=== PATIENT | male | born 1950 | race Caucasian/White ===

== ENCOUNTER 2020-04-05 07:40 | Outpatient (CLI) | payer MEDICARE, OTHER ==
[2020-04-06 02:28] LABS: SARS-CoV-2 MS2 Positive; SARS-CoV-2 N Gene Negative; SARS-CoV-2 S Gene Negative; SARS-CoV-2 by NAA Not Detected (NotDetected); SARS-CoV-2 orf1ab Negative
== END 2020-04-05 07:41 | disposition home or self-care (01) ==
LOC: LABBT 07:40
PROVIDERS: ATTEND Neurological Surgery
DX: Z01.812 Encounter for preprocedural laboratory examination (principal); M48.061 Spinal stenosis, lumbar region without neurogenic claudication; Z20.822 Contact with and (suspected) exposure to COVID-19
CPT/HCPCS: 87635; U0003

== ENCOUNTER 2020-04-10 05:38 | Day surgery (SDC) | payer MEDICARE, OTHER ==
--- NOTE | 2020-04-09 17:11 | HP ---
HISTORY OF PRESENT ILLNESS: Mr. Dotson is a 70-year-old man who is referred to us for evaluation by his primary care doctor, for severe lumbar stenosis as well as sciatic pain. He has a distant history of lumbar decompression and fusion performed at L4-5 at an outside facility. He now has developed what appears to be adjacent segment disease a level above at L3-4 where he has severe central canal and lateral recess stenosis as well as foraminal stenosis. He hopes to treat this surgically given how debilitating the pain has been. He has attempted injections with limited benefit. PAST MEDICAL HISTORY: Significant for hyperlipidemia, osteoarthritis, chronic pain syndrome. PAST SURGICAL HISTORY: Lumbar decompression and fusion, [place] prostatectomy, carpal tunnel release on the right. MEDICATIONS: Lipitor. ALLERGIES: NO KNOWN DRUG ALLERGIES. PHYSICAL EXAMINATION: Exam is deferred for telehealth visit. ASSESSMENT: Lumbar spinal stenosis with neurogenic claudication. PLAN: Dr. Espino met with the patient, reviewed imaging, and advocated for L3-L4 decompression. He explained to the patient the risks, benefits, and alternatives to the procedure. The patient expressed understanding and elected to move forward with surgery as discussed. I do believe that the patient is mentally competent and capable of making medical decisions for himself. We will move forward with surgery as planned. Job ID: [id number]
[2020-04-10] MEDS ORDERED: EPINEPHrine 1 MG/ML AMP ONE (06:22)
[2020-04-10] MEDS ORDERED: Thrombin 5000 UNITS/5 ML VIAL ONE (06:22)
[2020-04-10] MEDS ORDERED: Bupivacaine PF 0.5% 30 ML VIAL ONE (06:22)
[2020-04-10] MEDS ORDERED: Fentanyl 100 MCG/2 ML VIAL ONE ×3 (06:58→08:58)
[2020-04-10] MEDS ORDERED: Meperidine HCl/PF 25 MG/ML VIAL SLOW IVP PRN (07:48)
[2020-04-10] MEDS ORDERED: Promethazine HCl 25 MG/ML VIAL IM PRN (07:48)
[2020-04-10] MEDS ORDERED: Promethazine HCl 25 MG/ML VIAL SLOW IVP PRN (07:48)
[2020-04-10] MEDS ORDERED: HYDROmorphone 2 MG/ML VIAL SLOW IVP PRN (07:48)
--- NOTE | 2020-04-10 08:20 | OP ---
DATE OF PROCEDURE: 04/10/2020 MACHINE TANK OPERATOR: Aurelio Pickens PA-C INDICATION: Pain. DIAGNOSIS: Lumbar stenosis. PROCEDURE PERFORMED: Lumbar decompression, L3-L4. ANESTHESIA: General. DESCRIPTION OF PROCEDURE: The patient was brought into the operating room and placed under general anesthesia. He was flipped from the supine to prone position on the operating room table. A linear incision was planned at the L3-L4 segment. After prepping and draping and after an appropriate preoperative pause, the incision was created. The soft tissues were swept away from midline. Self-retaining retractors were placed in the wound for optimal exposure. After confirming the appropriate level with C-arm fluoroscopy, an Adson rongeur was used to remove the spinous process at the L3-L4 segment. High-speed cutting drill bit as well as , 3, and 4 mm Kerrisons were then used to complete the laminectomy. After completing the decompression of the central canal and lateral recesses, the wound was irrigated. Hemostasis was maintained throughout. The wound was then closed in anatomic layers, and a pressure dressing was applied. There were no known procedural complications. Job ID: [id number]
[2020-04-10] MEDS ORDERED: Ketorolac Tromethamine 30 MG/ML VIAL ONE ×2 (08:29→11:54)
[2020-04-10] MEDS ORDERED: Tamsulosin HCl 0.4 MG CAP ONE (08:35)
[2020-04-10] MEDS ORDERED: Rocuronium Bromide 10 MG/ML (10ML VIAL) ONE (11:54)
[2020-04-10] MEDS ORDERED: ePHEDrine 50 MG/ML VIAL ONE (11:54)
[2020-04-10] MEDS ORDERED: Glycopyrrolate 0.2 MG/ML 5 ML SYRINGE ONE (11:54)
[2020-04-10] MEDS ORDERED: PROPOFOL 200 MG/20 ML VIAL ONE (11:54)
[2020-04-10] MEDS ORDERED: Lidocaine 1% PF 5 ML VIAL ONE (11:54)
[2020-04-10] MEDS ORDERED: Ondansetron PF 4 MG/2 ML Vial ONE (11:54)
--- NOTE | 2020-04-21 19:29 | EKG ---
Test Reason : PREOP Blood Pressure : / mmHG Vent. Rate : 058 BPM Atrial Rate : 058 BPM P-R Int : 154 ms QRS Dur : 098 ms QT Int : 404 ms P-R-T Axes : 052 032 051 degrees QTc Int : 396 ms Sinus bradycardia Otherwise normal ECG No previous ECGs available Confirmed by VIVIANA AMIN MD ([id number]) on 04/21/2020 7:29:44 PM Referred By: MARELY Confirmed By:VIVIANA AMIN MD
== END 2020-04-10 11:10 | disposition home or self-care (01) ==
LOC: SDC 05:38
PROVIDERS: ATTEND Neurological Surgery
PROC: 01NB0ZZ Release Lumbar Nerve, Open Approach (ICD-10-PCS; principal; 2020-04-10)
DX: M48.062 Spinal stenosis, lumbar region with neurogenic claudication (principal); E78.5 Hyperlipidemia, unspecified; M19.90 Unspecified osteoarthritis, unspecified site; G89.4 Chronic pain syndrome; Z79.899 Other long term (current) drug therapy; Z98.1 Arthrodesis status
CPT/HCPCS: 76000; 93005; 93010; J0171; J0690; J1885; J2405; J2704; J3010; J3490; S0020